=== PATIENT | female | born 1995 | race Caucasian/White ===

== ENCOUNTER → 2017-08-05 | Outpatient (CLI) | payer OTHER ==
--- NOTE | 2017-08-05 16:55 | REP ---
CT study of the internal auditory canals without contrast: History: Prior right cholesteatoma surgery. 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 Technique: Helical scanning is acquired and 1 mm axial images were reformatted. Coronal multiplanar re-formation images are generated as well. CT findings: No intracranial or intraorbital abnormality is seen. There are no periauricular or retroauricular mass, adenopathy or abnormal fluid collection is seen. Left mastoid aeration is normal. Maxillary, ethmoidal and sphenoidal sinuses are clear. The nasal septum appears to deviates somewhat to the right. On the left internal auditory canal, otic capsule, external auditory canal, and middle ear cavity are unremarkable. Vesicular chain is intact. There is no abnormal soft tissue density in the middle ear cavity on the left. On the right, partial mastoidectomy has been performed. There is a dome shaped area of bony hypertrophy along the superior margin of the external auditory canal 9 mm in greatest dimension. The [place] middle ear ossicles are either resorbed or resected. There is a metallic stapes implant in place on the right. This does not appear to be dislocated. No abnormal soft tissue density is seen. Cochlear and vestibular apparatus appear intact. Internal auditory canals unremarkable on the right. There is sclerosis of the remaining mastoid sinus area. No other abnormality. Impression: Status post partial mastoidectomy on the right with right-sided stapes implant. Bony overgrowth along the superior aspect of the widened external auditory canal. Right-sided stapes implant. Normal left-sided IACs study. Signed by Ronald Mckeon MD 08/06/2017 08:16 A
== END ==
LOC: M RAD 15:04
PROVIDERS: ATTEND Otolaryngology
DX: H90.71 Mixed conductive and sensorineural hearing loss, unilateral, right ear, with unrestricted hearing on the contralateral side (principal)